=== PATIENT | female | born 1980 | race Hispanic/Latino ===

== ENCOUNTER 2017-10-29 22:21 | Emergency (ER) | payer OTHER ==
[~2017-10-29] VITALS: Ht 162.6 cm; Wt 86.2 kg
[2017-10-29] MEDS ORDERED: POTASSIUM CHLORIDE 20 MEQ TAB CR PO STA (23:38)
[2017-10-29 23:50] VITALS: BP 140/70
== END 2017-10-29 23:52 | disposition home or self-care (01) ==
LOC: FSED 22:21
DX: R07.89 Other chest pain (principal); F41.1 Generalized anxiety disorder
CPT/HCPCS: 71045; 80053; 81025; 82553; 84484; 85025; 93005; 99283